=== PATIENT | female | born 1935 | race Caucasian/White ===

== ENCOUNTER 2019-08-31 12:49 | Inpatient (IN) ==
[2019-09-01] MEDS ORDERED: NON-FORMULARY MEDICATION 1 EACH EACH (Alendronate Sodium [Fosamax] 70 MG) PO SCH (12:15)
[2019-09-01] MEDS ORDERED: D5% in Water 1,000 ML IVC PRN (12:16)
[2019-09-01] MEDS ORDERED: Dextrose Gel 15 GM/37.5 ML TUBE PO PRN ×2 (12:16)
[2019-09-01] MEDS ORDERED: *HR* Dextrose 50 % in Water (Vial) 50 ML VIAL IVP PRN (12:16)
[2019-09-01] MEDS: Insulin LISPRO 300 UNITS/3 ML VIAL SQ SCH ×3 (13:08→22:02)
[2019-09-01] MEDS: *HR* Metformin 500 MG TABLET PO SCH (16:53)
[2019-09-01] MEDS: *HR* Heparin 5,000 UNIT/ML VIAL SQ SCH (16:54)
[2019-09-01] MEDS: Acetaminophen 325 MG TABLET PO PRN ×2 (16:59→22:18)
[2019-09-01] MEDS: Sennosides/Docusate Sodium TABLET PO SCH (21:56)
[2019-09-01] MEDS: Nystatin POWDER 30 GM BOTTLE TP SCH (22:01)
[2019-09-02 05:16] LABS: Basophils % 0.7 %; Eosinophils # 0.3 K/mcL (0.0-0.6); Eosinophils % 4.5 %; Hematocrit 33.3 % (35.3-44.9); Hemoglobin 11.4 g/dL (11.5-15.4); Immature Granulocytes % 0.4 % (0-4); Lymphocytes # 2.2 K/mcL (0.6-4.6); Lymphocytes % 39.9 %; Mean Corpuscular HGB Conc 34.2 g/dL (31.6-35.5); Mean Corpuscular Hemoglobin 31.3 pg (28.0-33.3); Mean Corpuscular Volume 91.5 fL (83.0-100.0); Mean Platelet Volume 8.6 fL (9.4-12.4); Monocytes # 0.4 K/mcL (0.0-1.3); Monocytes % 7.1 %; Neutrophils # 2.6 K/mcL (1.6-8.9); Platelet Count 367 K/mcL (140-400); Red Blood Count 3.64 M/mcL (3.82-4.97); Red Cell Distribution Width 12.3 % (11.5-14.5); Segmented Neutrophils % 47.4 %; White Blood Count 5.5 K/mcL (4.3-11.1)
[2019-09-02 05:36] LABS: Albumin/Globulin Ratio 1.2 (1.1-2.2); Bilirubin,Total 0.5 mg/dL (0.3-1.0); Calcium 9.2 mg/dL (8.6-10.3); Globulin 3.3 g/dL (2.4-3.5); Magnesium 1.4 mg/dL (1.6-2.6); Potassium 4.2 mEq/L (3.5-5.1); Total Protein 7.3 g/dL (6.4-8.9)
[2019-09-02] MEDS: *HR* Heparin 5,000 UNIT/ML VIAL SQ SCH ×2 (05:48→16:55)
[2019-09-02] MEDS: amLODIPine 5 MG TABLET PO SCH (08:07)
[2019-09-02] MEDS: Sennosides/Docusate Sodium TABLET PO SCH (08:07)
[2019-09-02] MEDS: *HR* Metformin 500 MG TABLET PO SCH ×2 (08:07→16:54)
[2019-09-02] MEDS: Insulin LISPRO 300 UNITS/3 ML VIAL SQ SCH ×4 (08:10→20:52)
[2019-09-02] MEDS: Magnesium Oxide 400 MG TABLET PO SCH ×2 (11:28→21:37)
[2019-09-02] MEDS: Nystatin POWDER 30 GM BOTTLE TP SCH ×2 (11:33→21:46)
[2019-09-02] MEDS: Acetaminophen 325 MG TABLET PO PRN (15:25)
[2019-09-03 05:20] LABS: Hematocrit 30.5 % (35.3-44.9); Hemoglobin 10.3 g/dL (11.5-15.4); Mean Corpuscular HGB Conc 33.8 g/dL (31.6-35.5); Mean Corpuscular Hemoglobin 31.5 pg (28.0-33.3); Mean Corpuscular Volume 93.3 fL (83.0-100.0); Mean Platelet Volume 8.7 fL (9.4-12.4); Platelet Count 343 K/mcL (140-400); Red Blood Count 3.27 M/mcL (3.82-4.97); Red Cell Distribution Width 12.2 % (11.5-14.5); White Blood Count 5.7 K/mcL (4.3-11.1)
[2019-09-03 05:44] LABS: Calcium 8.8 mg/dL (8.6-10.3); Magnesium 1.4 mg/dL (1.6-2.6); Potassium 4.1 mEq/L (3.5-5.1)
[2019-09-03] MEDS: *HR* Heparin 5,000 UNIT/ML VIAL SQ SCH ×2 (06:17→17:43)
[2019-09-03] MEDS: Insulin LISPRO 300 UNITS/3 ML VIAL SQ SCH ×4 (08:12→20:47)
[2019-09-03] MEDS: *HR* Metformin 500 MG TABLET PO SCH (08:13)
[2019-09-03] MEDS: amLODIPine 5 MG TABLET PO SCH (08:13)
[2019-09-03] MEDS: Nystatin POWDER 30 GM BOTTLE TP SCH ×2 (08:13→20:53)
[2019-09-03] MEDS: Magnesium Oxide 400 MG TABLET PO SCH ×2 (08:13→20:52)
[2019-09-03] MEDS ORDERED: polyethylene glycoL 3350 17 GM POWD.PACK PO SCH (09:00)
[2019-09-03] MEDS: Fluconazole 100 MG TABLET PO SCH (15:25)
[2019-09-03] MEDS: Nystatin Cream 15 GM TUBE TP SCH ×2 (15:25→20:53)
[2019-09-03 16:48] LABS: Bilirubin,Urine Negative (Negative); Blood,Urine Trace-intact (Negative); Clarity,Urine Clear (Clear); Color,Urine Yellow (Yellow); Glucose,Urine (UA) Normal (Normal); Ketones,Urine Negative (Negative); Leukocyte Esterase,Urine Moderate (Negative); Nitrite,Urine Negative (Negative); Protein,Urine Negative (Neg-Trace); Urobilinogen,Urine Normal (Normal)
[2019-09-03 16:57] LABS: Bacteria,Urine Few per hpf (None-Few); RBC,Urine 0-3 per hpf (0-3); Renal Epithelial Cells,Urine Few per hpf (None-Few); Squamous Epithelial Cell,Urine Few per hpf (None-Few)
[2019-09-03] MEDS: Sulfamethoxazole/Trimeth DS 1 EACH TABLET PO SCH (20:52)
[2019-09-03] MEDS: Acetaminophen 325 MG TABLET PO PRN (21:09)
[2019-09-04] MEDS: *HR* Heparin 5,000 UNIT/ML VIAL SQ SCH ×2 (05:10→16:48)
[2019-09-04] MEDS: amLODIPine 5 MG TABLET PO SCH (09:15)
[2019-09-04] MEDS: Sulfamethoxazole/Trimeth DS 1 EACH TABLET PO SCH ×2 (09:15→20:02)
[2019-09-04] MEDS: Ascorbic Acid 500 MG TABLET PO SCH (09:15)
[2019-09-04] MEDS: Fluconazole 100 MG TABLET PO SCH (09:15)
[2019-09-04] MEDS: Magnesium Oxide 400 MG TABLET PO SCH ×2 (09:15→20:02)
[2019-09-04] MEDS: Insulin LISPRO 300 UNITS/3 ML VIAL SQ SCH ×4 (09:18→19:52)
[2019-09-04] MEDS: Nystatin Cream 15 GM TUBE TP SCH ×3 (09:18→20:03)
[2019-09-04] MEDS: Nystatin POWDER 30 GM BOTTLE TP SCH ×2 (09:18→20:02)
[2019-09-04] MEDS: Acetaminophen 325 MG TABLET PO PRN (21:17)
[2019-09-05] MEDS: *HR* Heparin 5,000 UNIT/ML VIAL SQ SCH ×2 (05:07→18:07)
[2019-09-05] MEDS: Insulin LISPRO 300 UNITS/3 ML VIAL SQ SCH ×4 (07:56→21:11)
[2019-09-05] MEDS: Nystatin POWDER 30 GM BOTTLE TP SCH ×2 (07:57→21:12)
[2019-09-05] MEDS: Nystatin Cream 15 GM TUBE TP SCH ×3 (07:57→21:12)
[2019-09-05] MEDS: Ascorbic Acid 500 MG TABLET PO SCH (07:59)
[2019-09-05] MEDS: Sulfamethoxazole/Trimeth DS 1 EACH TABLET PO SCH (07:59)
[2019-09-05] MEDS: Fluconazole 100 MG TABLET PO SCH (07:59)
[2019-09-05] MEDS: Magnesium Oxide 400 MG TABLET PO SCH ×2 (07:59→21:11)
[2019-09-05] MEDS: amLODIPine 5 MG TABLET PO SCH (07:59)
[2019-09-05] MEDS: Acetaminophen 325 MG TABLET PO PRN (21:11)
[2019-09-06] MEDS: *HR* Heparin 5,000 UNIT/ML VIAL SQ SCH ×2 (06:42→17:43)
[2019-09-06] MEDS: Acetaminophen 325 MG TABLET PO PRN ×2 (06:43→21:57)
[2019-09-06] MEDS: Nystatin POWDER 30 GM BOTTLE TP SCH (08:32)
[2019-09-06] MEDS: Nystatin Cream 15 GM TUBE TP SCH ×4 (08:32→22:00)
[2019-09-06] MEDS: Magnesium Oxide 400 MG TABLET PO SCH ×2 (08:34→21:57)
[2019-09-06] MEDS: amLODIPine 5 MG TABLET PO SCH (08:34)
[2019-09-06] MEDS: Ascorbic Acid 500 MG TABLET PO SCH (08:34)
[2019-09-06] MEDS: Insulin LISPRO 300 UNITS/3 ML VIAL SQ SCH ×4 (08:35→22:01)
[2019-09-07] MEDS: *HR* Heparin 5,000 UNIT/ML VIAL SQ SCH (04:59)
[2019-09-07 07:02] VITALS: BP 122/64
[2019-09-07] MEDS: Magnesium Oxide 400 MG TABLET PO SCH (08:19)
[2019-09-07] MEDS: Ascorbic Acid 500 MG TABLET PO SCH (08:20)
[2019-09-07] MEDS: amLODIPine 5 MG TABLET PO SCH (08:20)
[2019-09-07] MEDS: Insulin LISPRO 300 UNITS/3 ML VIAL SQ SCH (08:21)
== END 2019-09-07 11:10 | disposition home health service (06) | DRG 641 ==
LOC: INPGRE 09-01 11:33
PROVIDERS: ADMIT Family Medicine; ATTEND Family Medicine